=== PATIENT | female | born 2000 | race Two or more races ===

== ENCOUNTER 2024-10-24 17:39 | Emergency (ER) | payer MEDICAID, SELFPAY ==
[2024-10-24 17:39] VITALS: BMI 22.7
[2024-10-24 18:28] VITALS: BP 98/61; PULSE 79; RESP 17; TEMP 36.4; O2SAT 99
[2024-10-24 19:21] VITALS: BP 106/61; PULSE 77; RESP 16; TEMP 37.2; O2SAT 100
--- NOTE | 2024-10-24 19:29 | XR_ITS ---
Examination: OB Transvaginal ultrasound of the pelvis, complete Technique: Transvaginal sonographic images pelvis performed using cronin scale imaging Exam date and time: October 24, 2024, 0809 hrs. Indications: Pelvic pain beginning 2 days ago Findings: Uterus 9.1 cm, pole 1.3 cm corresponds to 7 weeks 4 days gestational age Cardiac motion 162 BPM 31 x 29 mm subchorionic hemorrhage Right ovary 3.4 cm arterial flow. Left ovary 3.4 cm arterial flow Impression: Viable intrauterine gestation 7 weeks 4 days, recommend short-term follow-up given the patient's subchorionic hemorrhage.
--- NOTE | 2024-10-24 19:33 | PD.EDABDPN ---
ED Abdominal Pain RME/HPI General Chief Complaint: Abdominal Pain Stated complaint: ABD PAIN X 3 DAYS Time seen by provider: 10/24/24 19:28 Arrival date/time: 10/24/24 17:39 23F with no significant PMH presents to ED with several days of gen ab pain/cramping (patient states it feels like contractions, but denies vaginal bleeding) and some N/V. Patient denies dysuria and diarrhea. Limitations: no limitations Related Data Home Medications ?Medication ?Instructions ?Recorded ?Confirmed prenat.vits,joaquin,gya-mmta-odenh 1 tab PO QDAY 10/07/22 10/31/22 Allergies Allergy/AdvReac Type Severity Reaction Status Date / Time egg Allergy Severe Headache Verified 10/24/24 17:43 Review of Systems Review of Systems Systems Reviewed: All systems reviewed, normal except as documented Constitutional Constitutional: Reports system reviewed and no additional complaints, except as documented, Denies fever(s) and Denies headache(s) ENT Ears, Nose, Mouth, and Throat: Denies disequilibrium and Denies headache(s) Cardiovascular Cardiovascular: Reports system reviewed and no additional complaints, except as documented, Denies chest pain and Denies dyspnea Respiratory Respiratory: Reports system reviewed and no additional complaints, except as documented, Denies cough and Denies dyspnea Gastrointestinal Gastrointestinal: Reports system reviewed and no additional complaints, except as documented, Reports as per HPI, Reports abdominal pain, Reports nausea and Reports vomiting Neurologic Neurologic: Reports system reviewed and no additional complaints, except as documented, Denies confusion, Denies disequilibrium and Denies headache(s) Psychiatric Psychiatric: Denies confusion Past Medical History Past Medical History NEUROLOGIC: Negative Neurological Disorders CARDIAC: Negative Cardiac Disorders or Congestive Heart Failure RESPIRATORY: Negative Chronic Obstructive Pulmonary Disease (COPD) GASTROINTESTINAL: Negative Gastrointestinal Disorders, Hepatitis or Colorectal Cancer GENITOURINARY: Negative Genitourinary Disorders, Renal Disease or Prostate Cancer REPRODUCTIVE: Negative Breast Cancer, Endometriosis, Pelvic Inflammatory Disease, Previous Pregnancies, Testicular Cancer or Uterine Prolapse MUSCULOSKELETAL: Negative Musculoskeletal Disorders or Bone Cancer ENDOCRINE: Negative Endocrine Disorders, Diabetes Mellitus Type 1 or Diabetes Mellitus Type 2 HEMATOLOGIC: Negative Blood Disorders OTHER HISTORY: Negative Hospitalization, Autoimmune Disease, Down Syndrome, Developmental Delay, Shingles, Falls, Blood Transfusions, Blood Transfusion Reaction, Anesthesia Reactions, Organ Transplant, Chemotherapy, Radiation Therapy, Hyperbaric Therapy, MRSA, VRSA, Vancomycin-Resistant Enterococci, Human Immunodeficiency Virus (HIV), Chicken Pox, Measles, Mumps, Rubella ([place] Measles), Pertussis, Clostridium Difficile, Cancer, Breast Cancer, Cervical Cancer, Colorectal Cancer, Lung Cancer, Ovarian Cancer, Prostate Cancer or Testicular Cancer Family History FAMILY HISTORY: Negative Family Psychiatric Problems, Family Respiratory Disorders, Family Cardiac Disorders, Family Gastrointestinal Problems, Family Cancer, Family Surgery or Family Anesthesia Reaction Surgical History SURGICAL: Negative Organ Transplant Social History SMOKING STATUS: Never smoker ED Exam General Limitations: Present no limitations General appearance: Present alert and in no apparent distress Head Head exam: Present atraumatic Eye Eye exam: Present normal appearance, PERRL and EOMI ENT ENT exam: Present normal exam, normal oropharynx and mucous membranes moist Neck Neck exam: Present normal inspection, full ROM and trachea midline Chest Chest inspection: Present normal inspection and symmetric chest wall rise Respiratory Respiratory exam: Present normal lung sounds bilaterally Cardiovascular Cardiovascular exam: Present regular rate, normal rhythm and normal heart sounds Abdominal Exam Abdominal exam: Present soft and normal bowel sounds Abdominal tenderness: Present diffuse and mild Extremities Exam Extremities exam: Present normal inspection and full ROM Back Exam Back exam: Present normal inspection and full ROM Neurological Exam Neurological exam: Present alert, oriented X3 and CN II-XII intact Psychiatric Psychiatric exam: Present normal affect and normal mood Skin Skin exam: Present warm, dry, intact and normal color Course Quality Measures none Orders Category Date Time Status US OB transvaginal Stat Exams 10/24/24 19:29 Completed Beta HCG,Quantitative Stat Lab 10/24/24 19:55 Completed CBC Stat Lab 10/24/24 19:55 Completed CMP [Comprehensive Metabolic Panel] Stat Lab 10/24/24 19:55 Completed Drug Screen,Urine Stat Lab 10/24/24 20:25 Completed HCG Qualitative,Urine Stat Lab 10/24/24 20:25 Completed Lipase Stat Lab 10/24/24 19:55 Completed Urinalysis, C/S if Indicated Stat Lab 10/24/24 20:25 Completed Acetaminophen Tab [Tylenol Tab] Med 10/24/24 22:18 Discontinued 650 mg PO X1 ONE Vital Signs Vital signs: Vital Signs Temperature 97.6 F 10/24/24 18:28 Pulse Rate 79 10/24/24 18:28 Respiratory Rate 17 10/24/24 18:28 Blood Pressure 98/61 10/24/24 18:28 Pulse Oximetry (%) 99 10/24/24 18:28 Oxygen Delivery Method Room Air 10/24/24 18:28 O2 at 99% on RA and WNLs Abdominal Pain MDM MDM Narrative MDM Narrative:: 23F with no significant PMH presents to ED with several days of gen ab pain/cramping (patient states it feels like contractions, but denies vaginal bleeding) and some N/V. Patient denies dysuria and diarrhea. Physical exam reveals some mild gen ab tenderness, possibly worse in lower areas. Patient is afebrile, calm, and alert. US reveals 7 weeks IUP. 3 cm subchorionic hemorrhage. Patient confirms no vaginal bleeding. Moderate leukocytosis and anemia with HgB 8.1. CMP unremarkable. UA contaminated. Beta HCG around 50k and WNLs. Meds and high school guidance counselor given, including to return if any dizziness, weakness, or gross vaginal bleeding. Patient data External records reviewed:: [facility] previous records Clinical information provided by:: patient Social determinants that could affect healthcare access:: none Patient has the following chronic illnesses:: none How is presenting disease/condition affected by chronic disease/condition?: no chronic disease Evaluation data The following diagnostics were reviewed and interpreted by me:: lab results and radiology exam(s) Lab and/or radiology exams considered but not ordered:: ordered Interpretation Summary: above Medications / Prescriptions Medications or Prescriptions considered but not ordered:: ordered Medication administrations:: Medication Administration History Discontinued Medications Acetaminophen (Acetaminophen 325 Mg Tablet) 650 mg PO X1 ONE Stop: 10/24/24 22:19 above Consultations Consultation(s) initiated? (list below): No Diagnosis Differential diagnosis abdominal pain: abdominal pain, acute appendicitis, calculus of kidney, constipation, diverticulitis, gastroenteritis, pancreatitis, small bowel obstruction and other (ovarian cyst, , subchorionic hemorrhage and anemia in ) Most likely diagnosis given after review of the tests above:: subchronionic hemorrhage and anemia in Admission Indicated Admission indicated?: not indicated Admission Request Was there a request for admission?: No Disposition Plan Disposition Plan: Discharge Discharge Attestation Discharge Attestation: The patient and all family members were given an opportunity to ask questions and understood the discharge instructions. Discharge instructions specifically effects, indications for sooner follow up or return to the emergency department, and the expected course of current diagnosis. Patient condition: Stable Discharge Plan Plan Patient Disposition: HOME (Self Care) Discharge Disposition comment: Stable Prescriptions/Referrals Prescriptions/Med Rec: No Action Vitamin Tablet 1 tab PO QDAY Referrals: No Primary/Family,Physician [Primary Care Provider] - In 1 week Problem List Clinical Impression: Subchorionic hemorrhage in first trimester, Anemia affecting Patient/Caregiver Discharge Instructions Education Materials: Anemia During , Bleeding During Early Additional Instructions: Please follow-up with PCP/OBYGN within 24-48 hours and return immediately if symptoms worsen. Print Language: Tajik Stand Alone Forms: Patient Portal Info Letter PA/INTERACTIVE MEDIA SPECIALIST Supervising Physician PA/INTERACTIVE MEDIA SPECIALIST Supervising Physician: Dr. Treviño
[2024-10-24 20:04] LABS: Basophils # (Auto) 0.0 Thou/mm3 (0.0-0.2); Basophils % (Auto) 0 % (0-2.5); Eosinophils # (Auto) 0.0 Thou/mm3 (0.0-0.5); Eosinophils % (Auto) 0 % (0-10); Hematocrit 26.1 % (36.0-46.0); Immature Granulocytes Auto 0.08 Thou/mm3 (0.00-0.00); Lymphocytes # (Auto) 1.1 Thou/mm3 (1.0-4.8); Lymphocytes % (Auto) 8 % (10-50); Mean Corpuscular HGB Conc 31.0 g/dl (31.0-37.0); Mean Corpuscular Hemoglobin 22.1 pg (25.0-35.0); Mean Corpuscular Volume 71 fL (80-100); Monocytes # (Auto) 0.7 Thou/mm3 (0.0-0.8); Monocytes % (Auto) 5 % (0-12); Neutrophils # (Auto) 12.6 Thou/mm3 (1.8-7.7); Neutrophils % (Auto) 87 % (37-80); Nucleated Red Blood Cell # 0.00 Thou/mm3 (0.00-0.00); Nucleated Red Blood Cell % 0 /100 WBC (0); Platelet Count 198 Thou/mm3 (140-440); RDW Standard Deviation 39.1 fL (36.4-46.3); Red Blood Count 3.66 Miln/mm3 (4.00-5.20); White Blood Count 14.5 Thou/mm3 (3.6-11.0)
[2024-10-24 20:10] LABS: Hemoglobin 8.1 g/dL (12.0-16.0)
[2024-10-24 20:22] LABS: Alanine Aminotransferase 14 U/L (10-49); Albumin, Serum 4.3 gm/dL (3.5-5.0); Albumin/Globulin Ratio 1.7 (1.2-2.2); Alkaline Phosphatase 45 U/L (46-116); Anion Gap 10 (7-16); Aspartate Amino Transferase 18 U/L (0-34); BUN/Creatinine Ratio 17 Ratio (12-20); Bilirubin,Total 0.5 mg/dL (0.3-1.2); Blood Urea Nitrogen 10 mg/dL (9-23); Calcium 9.5 mg/dL (8.3-10.6); Calcium (Corrected) 9.5 mg/dL (8.5-10.1); Carbon Dioxide 25.5 mMol/L (20.0-31.0); Chloride 103 mMol/L (98-107); Creatinine (Component) 0.6 mg/dL (0.6-1.3); Estimated Creatinine Clearance 116.3 mL/min (>60); Globulin 2.6 gm/dL (2.3-3.5); Glucose 105 mg/dL (74-106); Lipase 26 U/L (12-53); Osmolality,Calculated 274 (275-295); Potassium 3.5 mMol/L (3.4-5.1); Sodium 138 mMol/L (136-145); Total Protein 6.9 gm/dL (5.7-8.2); eGFR > 60 See Note
[2024-10-24 20:31] LABS: Collection Type, Urine Clean Catch
[2024-10-24 20:39] LABS: HCG Qualitative,Urine Positive
[2024-10-24 20:46] LABS: Amphetamine/Methamp Scrn,U Negative (Negative); Barbiturate Screen,Urine Negative (Negative); Benzodiazepines Screen,Urine Negative (Negative); Benzoylecgonine Screen, Ur Negative (Negative); Fentanyl Screen,Urine Negative (Negative); Opiate Screen,Urine Negative (Negative); THC Screen,Urine Negative (Negative)
[2024-10-24 20:54] LABS: Amorphous Crystals,Urine Present (Absent); Bacteria,Urine Rare; Bilirubin,Urine Negative (Negative); Blood,Urine Negative (Negative); Clarity,Urine Clear (Clear/Hazy); Color,Urine Yellow (Lt Yel-Yel); Culture Indicated,Urine Not Indicated; Glucose, Urine Negative (Negative); Ketones,Urine 2+ (Negative); Leukocyte Esterase,Urine Positive (Negative); Nitrite,Urine Negative (Negative); PH,Urine 6.0 (5.0-7.0); Protein,Urine 1+ (Neg - Trace); RBC,Urine 3 /hpf (0-3); Specific Gravity,Urine 1.032 (1.001-1.035); Squamous Epithelial Cell,Urine 8 /hpf (0-5); Urobilinogen,Urine 6.0 mg/dL (0.0-1.0); WBC,Urine 3 /hpf (0-5)
[2024-10-24 22:36] LABS: Beta HCG,Quantitative 54116 mIU/mL (<5.0)
[2024-10-24] MEDS: ACETAMINOPHEN 325 MG TABLET 650 MG PO (22:41)
== END 2024-10-24 22:48 | disposition home or self-care (01) ==
PROVIDERS: Physician Assistant; Emergency Provider Emergency Medicine
DX: O20.8 Other hemorrhage in early pregnancy (principal); O99.011 Anemia complicating pregnancy, first trimester; Z3A.01 Less than 8 weeks gestation of pregnancy
CPT/HCPCS: 36415; 76817; 80053; 80307; 81001; 81025; 83690; 84702; 85025; 99283; A9270

== ENCOUNTER 2024-12-23 18:06 | Emergency (ER) | payer MEDICAID, SELFPAY ==
[2024-12-23 19:36] VITALS: BP 111/66; PULSE 68; RESP 18; TEMP 36.8; O2SAT 99
--- NOTE | 2024-12-23 19:55 | PD.EDEYE ---
ED Eye Problem RME/HPI General Chief complaint: Eye Problems Stated complaint: ITCHY, BURNING EYES X 1 WK Time Seen by Provider: 12/23/24 18:15 Source: patient, RN notes reviewed and old records reviewed Arrival date/time: 12/23/24 18:06 Mode of arrival: ambulatory Limitations: no limitations RME / HPI RME / HPI Narrative: 24yof presents to ED for 1 week history of bilateral eye redness and itching. Patient reports recent runny nose and sneezing. No fever, congestion, vision changes, eye drainage or eye pain reported. No medications or treatments since onset. Related Data Home Medications ?Medication ?Instructions ?Recorded ?Confirmed prenat.vits,joaquin,vym-kfwb-iabae 1 tab PO QDAY 10/07/22 10/31/22 Previous Rx's ?Medication ?Instructions ?Recorded cetirizine 10 mg tablet (Zyrtec) 10 mg PO QDAY #30 tabs 12/23/24 olopatadine 0.2 % eye drops 1 drp ophthalmic (eye) QDAY PRN 12/23/24 (Pataday Once Daily Relief) itching #5 mL Allergies Allergy/AdvReac Type Severity Reaction Status Date / Time egg Allergy Severe Headache Verified 12/23/24 18:11 Review of Systems Review of Systems Systems Reviewed: All systems reviewed, normal except as documented Constitutional Constitutional: Denies chills, Denies fever(s) and Denies headache(s) Eyes Eyes: Denies blurry vision, Denies change in vision and Denies photophobia Comments: Reports redness, itching ENT Ears, Nose, Mouth, and Throat: Denies headache(s) and Denies nasal congestion Comments: Reports runny nose Neurologic Neurologic: Denies headache(s) Past Medical History Surgical History OTHER SURGICAL HX: denies pshx Social History SMOKING STATUS: Never smoker SUBSTANCE USE: does not use ALCOHOL: Never Past Medical History Comments PMH COMMENT: denies pmhx ED Exam General Limitations: Present no limitations General appearance: Present alert and in no apparent distress Head Head exam: Present atraumatic and normocephalic Eye Eye exam: Present PERRL, EOMI and conjunctival injection (Bilateral); Absent periorbital swelling or periorbital tenderness ENT ENT exam: Present normal exam and mucous membranes moist Neck Neck exam: Present normal inspection and full ROM Chest Chest inspection: Present normal inspection and symmetric chest wall rise Respiratory Respiratory exam: Present normal lung sounds bilaterally; Absent respiratory distress Cardiovascular Cardiovascular exam: Present regular rate and normal rhythm Extremities Exam Extremities exam: Present normal inspection and full ROM Neurological Exam Neurological exam: Present alert and oriented X3 Psychiatric Psychiatric exam: Present normal affect and normal mood Skin Skin exam: Present warm, dry, intact and normal color Course Quality Measures none Vital Signs Vital signs: Vital Signs Temperature 98.2 F 12/23/24 19:36 Pulse Rate 68 12/23/24 19:36 Respiratory Rate 18 12/23/24 19:36 Blood Pressure 111/66 12/23/24 19:36 Pulse Oximetry (%) 99 12/23/24 19:36 Oxygen Delivery Method Room Air 12/23/24 19:36 Eye MDM Narrative MDM Narrative:: 24yof presents to ED for 1 week history of bilateral eye redness and itching. Patient reports recent runny nose and sneezing. No fever, congestion, vision changes, eye drainage or eye pain reported. No medications or treatments since onset. Will treat for allergic conjunctivitis. Encouraged cool compresses as needed, daily antihistamine. Stable for discharge, RTED precautions given. Patient data External records reviewed:: [facility] previous records (11/14 ED visit for anemia affecting ) Clinical information provided by:: patient Social determinants that could affect healthcare access:: other (specify) (Poor access to healthcare, acculturation difficulty) Patient has the following chronic illnesses:: None How is presenting disease/condition affected by chronic disease/condition?: no chronic disease Evaluation data The following diagnostics were reviewed and interpreted by me:: other (specify) (None) Lab and/or radiology exams considered but not ordered:: None Interpretation Summary: na Medications / Prescriptions Medications or Prescriptions considered but not ordered:: No antibiotics recommended at this time Medication administrations:: None Consultations Consultation(s) initiated? (list below): No Diagnosis Eye Problem Differential Diagnosis: corneal abrasion, conjunctivitis, acute iritis, periorbital cellulitis and subconjunctival hemorrhage Most likely diagnosis given after review of the tests above:: Conjunctivitis Admission Indicated Admission indicated?: not indicated Admission Request Was there a request for admission?: No Disposition Plan Disposition Plan: Discharge Discharge Attestation Discharge Attestation: The patient and all family members were given an opportunity to ask questions and understood the discharge instructions. Discharge instructions specifically effects, indications for sooner follow up or return to the emergency department, and the expected course of current diagnosis. Patient condition: Stable Discharge Plan Plan Patient Disposition: HOME (Self Care) Patient condition on transfer: Stable Prescriptions/Referrals Prescriptions/Med Rec: New olopatadine [Pataday Once Daily Relief] 0.2 % drops 1 drp ophthalmic (eye) QDAY PRN (Reason: itching) Qty: 5 0RF cetirizine [Zyrtec] 10 mg tablet 10 mg PO QDAY Qty: 30 0RF No Action Vitamin Tablet 1 tab PO QDAY Problem List Clinical Impression: Acute allergic conjunctivitis of both eyes Patient/Caregiver Discharge Instructions Print Language: Chinese Stand Alone Forms: Renée Award Info., Patient Portal Info Letter PA/CLINICAL GENETICS LABORATORY CHIEF Supervising Physician PA/CLINICAL GENETICS LABORATORY CHIEF Supervising Physician: Kamila
== END 2024-12-23 20:57 | disposition home or self-care (01) ==
LOC: SERX 20:13
PROVIDERS: Emergency Provider Emergency Medicine
DX: H10.13 Acute atopic conjunctivitis, bilateral (principal)
CPT/HCPCS: 99281